=== PATIENT | male | born 1985 | race Asian ===

== ENCOUNTER 2024-04-01 00:34 | Emergency (ER) | payer OTHER, SELFPAY ==
[2024-04-01 00:38] VITALS: BP 171/124
--- NOTE | 2024-04-01 01:17 | ED.SKININJ ---
HPI-Injury
General
Chief Complaint: Skin Surface Trauma
Source: patient
Exam Limitations: none
Time Seen by Provider: 04/01/24 01:08
History of Present Illness-Injury
Is this injury a work related problem?: No
Is pt an associate of [facility]?: No
Initial Injury comments:
This is a 39 year old male that comes in with c/o a dog scratch to the back of his ear. States that he was playing with his dog and the dog was on top of him. States that he either bit or scratched him behind his right ear. States that this happened
about 1 hour ago. Denies any fever, chills, nausea, vomiting, diarrhea, headache, dizziness.
Past History
Past History
ED Past Medical History: Psychiatric (Anxiety, Depression) and Other (Ann Austin tear, )
ED Past Surgical History: Orthopedic (right ankle surgery) and Other (I and D of right and left hand)
Social History
Tobacco: Smoker
Alcohol: Occasional
Personal: Single
Living: alone
Employment: Not employed
Review of Systems
Review of Systems
All Other Systems: ROS reviewed and negative except as documented in HPI and ROS
Constitutional: Reports no symptoms; Denies fever or chills
EENT: Reports no symptoms
Respiratory: Reports no symptoms
Cardiac: Reports no symptoms
ABD/GI: Reports no symptoms
: Reports no symptoms
Musculoskeletal: Reports no symptoms
Skin: Reports other (Laceration to the posterior right ear)
Neurological: Reports no symptoms
Psychiatric: Reports no symptoms
Skin Exam
Laceration
Right Posterior Ear:
Length in cm: 4
Orientation: vertical
Type of Laceration: simple
Any active bleeding?: no active bleeding
Distal skin color and temperature: normal-warm & good color
Normal distal neurovascular exam: Yes
Range of motion: full
Phy Exam
General Physical Exam
General Presentation: well appearing and no apparent distress
General age: appears stated age
General Skin: warm and dry
General Habitus: normal
General Mental: alert
General Hydration: appears well hydrated
ENT Exam
ENT Exam: TM's normal, pharynx normal and neck supple
Eye Exam
Eye Exam: EOMI
Cardiovascular Exam
Cardiovascular Exam: regular rate/rhythm
Skin Exam
Skin Exam: normal color, warm/dry, no rash, no petechia and laceration (Possible a scratch dimple vs laceration to the right posterior ear along the fold)
Psychiatric Exam
Psychiatric Exam: normal mood/affect
Course
Vital Signs
Initial and Last Documented VS:
Initial Vital Signs
Temp Pulse Resp BP Pulse Ox
98.3 F 95 16 171/124 100
04/01/24 00:38 04/01/24 00:38 04/01/24 00:38 04/01/24 00:38 04/01/24 00:38
Last Documented Vital Signs
Temp Pulse Resp BP Pulse Ox
98.3 F 95 16 171/124 100
04/01/24 00:38 04/01/24 00:38 04/01/24 00:38 04/01/24 00:38 04/01/24 00:38
MDM/Problems Addressed
Differential Diagnosis Includes:
Laceration vs scratch dimple on the right posterior ear.
MDM/Problems Addressed:
This is a 39 year old male that comes in with c/o a laceration to the right posterior ear form his dog.
Explained to patient that dog bits are not sutured and his laceration is on the fold and is not seen. Steri strips applied and patient will be started on antibiotics. Patient believes that his Tetanus is up today. Patient to watch for any redness
or drainage. Return with any concerns.
Chronic conditions affecting care:
NA
Acute Exacerbation and/or Progression of Chronic Illness:
NA
*Pulse Oximetry
Patient hypoxic: no
*EKG
Interpreted by ED Provider?: NA
Rate: EKG- N/A
*Cloth Presser Interpretation
Rate: Cloth Presser- N/A
*Critical Care Note
Total Time (30-74mins, 75-104mins- exclusive of procedures): Not Applicable
ED Attending Note
-
Portions of this chart may have been created with voice recognition software.� Occasional wrong word or��sound alike� substitutions may have occurred due to the inherent limitations of voice recognition software.
Discharge Plan
Departure
Patient Disposition: Home (Routine Discharge)
Date of Disposition: 04/01/24
Time of Disposition: :
Patient with high blood pressure during this ER visit?: Yes
Condition: Good
Covid-19: Not Applicable
Discharge Problem:
Laceration of right ear
Instructions: Wound Care (DC), BLOOD PRESSURE
Prescriptions:
New
amoxicillin-pot clavulanate 875-125 mg tablet
1 tab PO BID Qty: 14 0RF
Activity Restrictions/Additional Instructions:
As discussed, your laceration is right on the crease of the posterior ear. Steri strips have been place over the incision to help hold this together. If they fall off just continue to keep the wound clean. Please use warm soapy water to keep this
clean. Do not scrub but pat the area when washing. You have had a prescription sent to your Pharmacy for the next 7 days. Follow up with the family doctor for recheck. IF YOU HAVE ANY REDNESS OR DRAINAGE FROM THIS SITE OR YOU HAVE ANY OTHER CONCERNS
PLEASE RETURN TO THE EMERENGENCY ROOM.
Interventions
Interventions:
*Risk Screen - Suicide Last Done: 04/01/24 00:38
*General Assessment Last Done: 04/01/24 01:11
*Neglect/Abuse Screening Last Done: 04/01/24 00:38
ED- Fall Risk Assessment Last Done: 04/01/24 01:11
*ED COVID-19 Vaccine History Last Done: 04/01/24 00:38
ED-Skin Assessment Last Done: 04/01/24 01:11
Discharge Date and Time
Print Language: KOREAN
[2024-04-01 01:32] VITALS: BP 134/106
[2024-04-01] MEDS: AUGMENTIN 875 MG/125 MG 1 TABLET PO (01:40)
== END 2024-04-01 01:40 | disposition home or self-care (01) ==
LOC: EMR 00:34
PROVIDERS: EMERGENCY PHYSICIAN Student in an Organized Health Care Education/Training Program
DX: S01.311A Laceration without foreign body of right ear, initial encounter (principal); W45.8XXA Other foreign body or object entering through skin, initial encounter; F17.200 Nicotine dependence, unspecified, uncomplicated; Z87.19 Personal history of other diseases of the digestive system
CPT/HCPCS: 99282